=== PATIENT | female | born 1940 | race Caucasian/White ===

== ENCOUNTER 2024-04-17 08:00 | Emergency (ER) | payer MEDICARE, MEDICAID ==
[~2024-04-17] VITALS: Ht 167.6 cm; Wt 74.8 kg
[2024-04-17 08:00] VITALS: BP 160/82; PULSE 74; RESP 16; TEMP 96.9; O2SAT 98
[2024-04-17 08:12] VITALS: BP 175/82; PULSE 69; RESP 12; O2SAT 97
[2024-04-17] MEDS: LIDOCAINE 5% 1 EA PATCH TP ONE (08:57)
[2024-04-17] MEDS: ACETAMINOPHEN EXTRA STRENGTH 500 MG TAB PO ONE (08:58)
[2024-04-17] MEDS: CYCLOBENZAPRINE 10 MG TAB PO ONE (08:58)
[2024-04-17] MEDS: KETOROLAC 30 MG/ML VIAL IM ONE (08:59)
[2024-04-17] MEDS ORDERED: CYCL-711 PO (09:41)
[2024-04-17] MEDS ORDERED: ACET-8905 PO (09:41)
[2024-04-17] MEDS ORDERED: LID5T TP (09:41)
[2024-04-17] MEDS ORDERED: DICL20GE TP (09:41)
[2024-04-17] MEDS ORDERED: IBUP-2218 PO (09:41)
== END 2024-04-17 10:00 | disposition home or self-care (01) ==
LOC: EDBD 08:00 → MED 08:00
DX: S39.012A Strain of muscle, fascia and tendon of lower back, initial encounter (principal); M62.830 Muscle spasm of back; I10 Essential (primary) hypertension; E78.5 Hyperlipidemia, unspecified; Z79.1 Long term (current) use of non-steroidal anti-inflammatories (NSAID); Z79.899 Other long term (current) drug therapy; X58.XXXA Exposure to other specified factors, initial encounter; Y93.89 Activity, other specified; Y92.89 Other specified places as the place of occurrence of the external cause; Y99.8 Other external cause status
CPT/HCPCS: 96372; 99284; J1885

== ENCOUNTER 2024-04-19 10:15 | Emergency (ER) | payer MEDICARE, MEDICAID ==
[~2024-04-19] VITALS: Ht 162.6 cm; Wt 72.6 kg
[~2024-04-19 10:15] MED LIST: ACET-8905 PO; CYCL-711 PO; DICL20GE TP; IBUP-2218 PO; LID5T TP
[2024-04-19 10:19] VITALS: BP 150/79; PULSE 78; RESP 16; TEMP 98.1; O2SAT 98
[2024-04-19] MEDS: diazePAM 5 MG TAB PO ONE (11:22)
[2024-04-19] MEDS: ACETAMINOPHEN EXTRA STRENGTH 500 MG TAB PO ONE (11:22)
[2024-04-19] MEDS: KETOROLAC 30 MG/ML VIAL IM ONE (11:26)
[2024-04-19 11:45] LABS: APPEARANCE,URINE CLEAR (CLEAR); BILIRUBIN,URINE NEGATIVE (NEGATIVE); BLOOD, URINE TRACE-I (NEGATIVE); COLOR,URINE YELLOW (YELLOW); LEUKOCYTE ESTERASE ,URINE TRACE (NEGATIVE); NITRITE, URINE NEGATIVE (NEGATIVE); PH,URINE 6.5 (5.0-9.0); PROTEIN,URINE NEGATIVE (NEGATIVE); UGLUCOSE NEGATIVE (NEGATIVE); UROBILINOGEN,URINE 0.2 EU/dL (0.2 - 1)
[2024-04-19 11:54] LABS: BACTERIA,URINE OCCASSIONAL /HPF (None Seen); RBC,URINE 0-5 /HPF (0-5); SQUAMOUS EPITHELIAL CELL,UR 0-3 (FEW) /LPF (0-3 (FEW)); WBC,URINE 0-5 /HPF (0-5)
[2024-04-19 14:14] VITALS: BP 146/69; PULSE 66; RESP 16; TEMP 98.1; O2SAT 97
== END 2024-04-19 14:14 | disposition home or self-care (01) ==
LOC: MED 10:15
DX: M54.50 Low back pain, unspecified (principal); I10 Essential (primary) hypertension; E78.5 Hyperlipidemia, unspecified; Z79.899 Other long term (current) drug therapy
CPT/HCPCS: 81001; 96372; 99283; J1885